=== PATIENT | female | born 2000 | race Caucasian/White ===

== ENCOUNTER 2023-10-21 17:36 | Emergency (ER) | payer MEDICAID ==
[~2023-10-21] VITALS: Ht 170.2 cm; Wt 82.0 kg
[2023-10-21 17:42] VITALS: O2SAT 100
[2023-10-21] MEDS: CEFTRIAXONE SODIUM 500MG VIAL IM ONE (18:38)
[2023-10-21] MEDS: DOXYCYCLINE HYCLATE 100MG CAPSULE PO ONE (18:38)
[2023-10-21] MEDS ORDERED: DOXY100C5 MT (18:43)
[2023-10-21 18:47] LABS: CLARITY URINE CLEAR (CLEAR); COLOR URINE YELLOW (YELLOW); GLUCOSE URINE NEGATIVE (NEGATIVE); KETONES URINE NEGATIVE (NEGATIVE); LEUKOCYTE ESTERASE URINE 3+ (NEGATIVE); NITRITE URINE NEGATIVE (NEGATIVE); OCCULT BLOOD URINE NEGATIVE (NEGATIVE); PROTEIN URINE NEGATIVE (NEGATIVE); SPECIFIC GRAVITY URINE 1.021 (1.005-1.030); UROBILINOGEN URINE 0.2 E.U./dL (0.2-1.0)
[2023-10-21 18:51] VITALS: BP 116/78; PULSE 68; RESP 16; TEMP 98.2
[2023-10-21 19:46] LABS: BACTERIA URINE 1+; RBC URINE 0-2 /hpf (0-2); SQUAMOUS EPITHELIAL CELL URINE 2+ /lpf (RARE/1+)
[2023-10-23 19:09] LABS: CHLAMYDIA TRACHOMATIS NAA Negative (Negative); NEISSERIA GONORRHOEAE NAA Negative (Negative)
== END 2023-10-21 18:53 | disposition home or self-care (01) ==
LOC: ER 17:36
DX: N89.8 Other specified noninflammatory disorders of vagina (principal)
CPT/HCPCS: 87491; 87591; 81003; 81025; 96372; 99283; J0696; Z7610 ×2